=== PATIENT | female | born 1970 | race Caucasian/White ===

== ENCOUNTER 2020-09-04 10:29 | Emergency (ER) | payer BC, SELFPAY ==
--- NOTE | ~2020-09-04 | XR_ITS ---
EXAMINATION: XR ankle RT min 3V DATE: 09/04/2020 10:55 INDICATION: Lateral right ankle pain and anastomoses post fall one week prior TECHNIQUE: Anteroposterior, oblique, mortise, and lateral views of the right ankle were obtained. COMPARISON: None. FINDINGS: Alignment is normal. No fracture. Joint spaces are well maintained. No ankle joint effusion. Small plantar calcaneal spur. Soft tissue swelling about the lateral malleolus. IMPRESSION: 1. No acute osseous abnormality. Reviewed, dictated and finalized at location A.
--- NOTE | ~2020-09-04 | XR_ITS ---
EXAMINATION: XR elbow RT min 3V DATE: 09/04/2020 10:55 INDICATION: Posterior right elbow pain post fall TECHNIQUE: Anteroposterior, two oblique and lateral views of the right elbow were obtained. COMPARISON: None. FINDINGS: Alignment is normal. No fracture or joint effusion. Joint spaces are normal. Soft tissues are unremar kable. IMPRESSION: 1. Negative right elbow radiographs. Reviewed, dictated and finalized at location A.
[2020-09-04 10:35] VITALS: BP 126/71; PULSE 77; RESP 12; TEMP 36.7; O2SAT 100
--- NOTE | 2020-09-04 11:10 | ED.LOWEXIN ---
HPI - Extremity Injury (Lower) General Chief Complaint: Extremity Injury, Lower Stated Complaint: R ANKLE INJURY Time Seen by Provider: 09/04/20 11:00 Source: patient and RN notes reviewed Mode of arrival: ambulatory Limitations: no limitations History of Present Illness HPI Narrative: Patient presents today complaining of a right elbow injury and right ankle injury 1 week ago while she was dancing and trying to dribble a box of ball at the same time. She rolled her right ankle and fell. She has been ambulatory since the fall. Denies pain at rest in either area. Pain increases in the elbow with pressure to the area. Pain increases to the ankle with twisting and walking. She has been applying ice and wearing an ankle sleeve, which does help with her symptoms. She currently rates her ankle pain 5. MD complaint: ankle injury Related Data Home Medications Medication Instructions Recorded Confirmed loratadine [Claritin] 10 mg PO DAILY 09/04/20 09/04/20 Allergies Allergy/AdvReac Type Severity Reaction Status Date / Time No Known Allergies Allergy Unknown Verified 09/04/20 10:40 Review of Systems Review of Systems: Narrative: CONSTITUTIONAL: Denies body aches, fever, chills, or sweats. EYES: Denies visual changes, redness, or discharge. ENT: Denies rhinorrhea, congestion, sore throat, or otalgia. CARDIOVASCULAR: Denies chest pain, palpitations, or edema. RESPIRATORY: Denies cough or dyspnea. GASTROINTESTINAL: Denies abdominal pain, nausea, vomiting, or diarrhea. GENITOURINARY: Denies dysuria or hematuria. SKIN: Denies rash, itching, or wounds. MUSCULOSKELETAL: Denies back pain, or myalgia. + Right elbow injury, right ankle injury NEUROLOGIC: Denies headache, numbness, tingling, or weakness. PSYCH: Denies depression or anxiety. [facility] Past Medical History Medical History Family history of colon cancer Family History Family History Mother Family history of suicide Father Hypertension Sibling Carcinoma of colon Other Cerebrovascular accident Family history of malignant neoplasm Family history of mental disorder Family history of seizure disorder Social History Social History Years smoked: 15 Smoking status: Former smoker Tobacco type: cigarettes Smoking end date: 04/16/03 Alcohol intake: current Drinks per week: 1 Substance use: never Substance use type: does not use Gender identity (if verbalized by the patient): Female Comments At time of signature, I have reviewed and agree with nursing past medical, surgical, social and family history unless otherwise noted. Please see nursing chart for further information. There is no relevant family history pertinent to the presenting complaint Exam Narrative: Exam Narrative: GENERAL: Well-appearing, well-nourished, and in no acute distress. HEAD: Normocephalic, atraumatic. EYES: EOMI. No redness or drainage. Conjunctivae normal. ENT: Mucous membranes pink and moist. NECK: Normal AROM. CHEST: No respiratory distress. EXTREMITIES: Right elbow: Mild tenderness to olecranon process. No tenderness to the lateral or medial epicondyles. No edema noted. Full range of motion actively without pain. Distal sensation intact. Capillary refill normal. Radial pulse normal. Right ankle: Moderate ecchymosis and mild edema about the ankle. Mild ecchymosis about the foot. Tenderness to the soft tissue laterally. No bony tenderness to the lateral and medial malleolus. No tenderness to the foot. Distal sensation intact. Capillary refill normal. Pedal pulse normal. Full AROM of the ankle with mild pain. SKIN: Warm, dry, no rash. Capillary refill normal. Normal skin turgor. NEURO: No focal deficits. Alert and oriented x3. Gait steady. PSYCH: Normal affect. No
== END 2020-09-04 11:41 | disposition home or self-care (01) ==
PROVIDERS: Emergency Provider Nurse Practitioner; PCP Family Medicine
DX: S93.401A Sprain of unspecified ligament of right ankle, initial encounter (principal); S50.01XA Contusion of right elbow, initial encounter; W19.XXXA Unspecified fall, initial encounter; Z87.891 Personal history of nicotine dependence
CPT/HCPCS: 73080; 73610; 99214; G0463

== ENCOUNTER → 2021-08-10 07:55 | Outpatient (CLI) | payer BC, SELFPAY ==
--- NOTE | ~2021-08-10 | US_ITS ---
EXAMINATION: US thyroid DATE: 08/10/2021 08:18 INDICATION: Neck lump. TECHNIQUE: Multiple ultrasound images of the thyroid were obtained. COMPARISON: None. FINDINGS: The right thyroid lobe measures 5.8 x 1.3 x 1.6 cm. The left thyroid lobe measures 5.1 x 1.3 x 1.8 c m. In the right thyroid lobe, there is a 6 mm solid, hypoechoic, [id number]-[id number]-cofq nodule with smooth margin without echogenic foci (TI-RADS TR4). In the right thyroid lobe, there is a 6 mm solid, hypoec hoic, uxxez-[id number]-sayy nodule with smooth margin and punctate echogenic foci (TR5). IMPRESSION: 1. Small thyroid nodules. Thyroid ultrasound is recommended in one year. Reviewed, dictated and finalized at location A.
== END ==
PROVIDERS: PCP Family Medicine; Visit Provider Nurse Practitioner Family
DX: E89.0 Postprocedural hypothyroidism (principal); R13.10 Dysphagia, unspecified; R22.1 Localized swelling, mass and lump, neck; E04.2 Nontoxic multinodular goiter
CPT/HCPCS: 76536

== ENCOUNTER 2022-04-03 02:26 | Day surgery (SDC) | payer BC, SELFPAY ==
[2022-03-22 12:18] VITALS: BMI 28.0
--- NOTE | 2022-04-02 10:15 | P.PNAN_ITS ---
Anes - Initial Pre Proc Eval Procedure: Operation Date: 04/03/22 12:30 Proposed Procedures p Esophagogastroduodenoscopy & Screening Colonoscopy - Ulisses Palencia MD Date/Time: 04/02/22 10:15 Surgeon: Ulisses Palencia MD Pre Op Diagnosis: dysphagia; neoplasm screening, fam hx colon ca Patient Data Age: 52 Gender: F Height: 1.78 m Weight: 88.5 kg Allergies Allergy/AdvReac Type Severity Reaction Status Date / Time No Known Allergies Allergy Unknown Verified 04/03/22 11:29 Home Medications Medication Instructions Recorded Confirmed Type loratadine 10 mg tablet (Claritin) 10 mg PO DAILY 09/04/20 04/03/22 History sertraline 50 mg tablet 50 mg PO DAILY #90 tabs 10/14/21 04/03/22 Rx ferrous sulfate 325 mg (65 mg 325 mg PO DAILY 12/01/21 04/03/22 History iron) tablet (FeroSul) valacyclovir 1 gram tablet 1,000 mg PO Q12H #30 tabs 12/01/21 04/03/22 Rx (Valtrex) Patient hx anesthesia problems: none Family hx anesthesia problems: none Results Review: All pre-operative results and documents have been reviewed as part of the pre- operative evaluation. [facility] Past Medical History Medical History Depression Family history of colon cancer Hyperlipemia Osteoarthritis of left hip Overweight (BMI 25.0-29.9) Personal history of other malignant neoplasm of skin Surgical History Surgical History History of left hip replacement Family History Family History Mother Family history of suicide Father Hypertension Sibling Carcinoma of colon Other Cerebrovascular accident Family history of malignant neoplasm Family history of mental disorder Family history of seizure disorder Social History Social History Years smoked: 15 Smoking status: Former smoker Tobacco type: cigarettes Second hand tobacco smoke exposure: No Smoking end date: 04/16/03 Alcohol intake: current Drinks per week: 1 Substance use: current Substance use type: other Other substance usage details: THC gummy once a month Living arrangements: with family Gender identity (if verbalized by the patient): Female Sexual Orientation (if Verbalized by the Patient): Straight or Heterosexual Spiritual care concerns: No Anes - Eval Final PreProcedure Day of Procedure 04/02/22 10:15 Patient weight: overweight Heart: regular rate and rhythm Lungs: clear to auscultation and normal air movement Airway: Mallampati scale class II Neurological: alert and oriented Last oral intake: >/= 8 hours ASA classification: II Emergent: no Anesthetic plan: proceed Anesthesia type and monitoring: general GIVS Results Review: All pre-operative results and documents have been reviewed as part of the pre- operative evaluation. Informed Consent: The patient's anesthetic plan and its attendant risks and benefits were discussed with the patient/family/POA. Questions were solicited and answers provided to the satisfaction of the patient/family/POA.
--- NOTE | 2022-04-03 11:29 | PM.HPGS ---
History of Present Illness History of Present Illness Consent: Risks, benefits, and alternatives have been discussed and questions answered. Patient agrees to proceed with procedure. Chief complaint: dysphagia; neoplasm screening, fam hx colon ca Narrative: Michelle Seth is a 52 year old female Who been having difficulty swallowing. She mentioned that she had a thyroidectomy about 18 years ago because the thyroid was enlarged. Only a couple of times recently she has noticed that when she is trying to swallow it seems not to go past her Alli's apple area. She does not spit out what is stuck. She can usually swallow it. It is more of a awareness that things are Not going down rather than actually having something get stuck. She does not have chronic acid reflux. She also has a family history of colon cancer. her sister had colon cancer. Her last colonoscopy was 5 years ago. Review of Systems Review of Systems: All systems reviewed & are unremarkable except as noted in HPI and below PMFSH Past Medical History Medical History Depression Family history of colon cancer Hyperlipemia Osteoarthritis of left hip Overweight (BMI 25.0-29.9) Personal history of other malignant neoplasm of skin Surgical History Surgical History History of left hip replacement Family History Family History Mother Family history of suicide Father Hypertension Sibling Carcinoma of colon Other Cerebrovascular accident Family history of malignant neoplasm Family history of mental disorder Family history of seizure disorder Social History Social History Years smoked: 15 Smoking status: Former smoker Tobacco type: cigarettes Second hand tobacco smoke exposure: No Smoking end date: 04/16/03 Alcohol intake: current Drinks per week: 1 Substance use: current Substance use type: other Other substance usage details: THC gummy once a month Living arrangements: with family Gender identity (if verbalized by the patient): Female Sexual Orientation (if Verbalized by the Patient): Straight or Heterosexual Spiritual care concerns: No Meds Home Medications and Allergies Home Medications Medication Instructions Recorded Confirmed Type loratadine 10 mg tablet (Claritin) 10 mg PO DAILY 09/04/20 03/22/22 History sertraline 50 mg tablet 50 mg PO DAILY #90 tabs 10/14/21 03/22/22 Rx ferrous sulfate 325 mg (65 mg 325 mg PO DAILY 12/01/21 03/22/22 History iron) tablet (FeroSul) valacyclovir 1 gram tablet 1,000 mg PO Q12H #30 tabs 12/01/21 03/22/22 Rx (Valtrex) Allergies Allergy/AdvReac Type Severity Reaction Status Date / Time No Known Allergies Allergy Unknown Verified 04/03/22 11:29 Exam Const: General: alert Orientation/consciousness: patient oriented x3 Resp: Auscultation: clear to auscultation bilaterally Cardio: Rhythm: regular rhythm GI: GI Palp: Yes Soft to palpation and No Tenderness to palpation present (GI) Neuro: General: patient oriented x3 Assessment and Plan Assessment and plan (1) Dysphagia: Code(s): R13.10 - Dysphagia, unspecified Status: Acute Assessment and Plan: EGD with possible biopsy or dilatation or cautery. (2) Colon cancer screening: Code(s): Z12.11 - Encounter for screening for malignant neoplasm of colon Status: Acute Assessment and Plan: Colonoscopy with possible biopsy or polypectomy or cautery or injection of substances.
[2022-04-03 11:34] VITALS: BP 121/77; PULSE 88; RESP 16; TEMP 36.3; O2SAT 98
[2022-04-03] MEDS: LACTATED RINGERS 1,000 ML 150 ML IV CONT (11:48)
--- NOTE | 2022-04-03 12:51 | SUR.OPER ---
EGD END 1247 COLONOSCOPY START 1250
[2022-04-03 13:13] VITALS: BP 121/70; PULSE 79; RESP 16; O2SAT 100
[2022-04-03 13:23] VITALS: BP 124/73; PULSE 74; RESP 16; O2SAT 97
[2022-04-03 13:33] VITALS: BP 118/76; PULSE 69; RESP 16; O2SAT 97
== END 2022-04-03 13:49 | disposition home or self-care (01) ==
PROVIDERS: PCP Family Medicine; Visit Provider Internal Medicine Gastroenterology
PROC: 0DJ08ZZ Inspection of Upper Intestinal Tract, Via Natural or Artificial Opening Endoscopic (ICD-10-PCS; CPT 43235; principal; 2022-04-03 12:30)
DX: Z12.11 Encounter for screening for malignant neoplasm of colon (principal); D12.5 Benign neoplasm of sigmoid colon; K63.5 Polyp of colon; Z80.0 Family history of malignant neoplasm of digestive organs; R13.10 Dysphagia, unspecified; K21.00 Gastro-esophageal reflux disease with esophagitis, without bleeding; E78.5 Hyperlipidemia, unspecified; F32.A Depression, unspecified; Z87.891 Personal history of nicotine dependence; F12.90 Cannabis use, unspecified, uncomplicated
CPT/HCPCS: 45385; 45380; 43239; 87081; 88305; J2001; J2704; J7120

== ENCOUNTER 2022-05-15 11:56 | Emergency (ER) | payer BC, SELFPAY ==
[2022-05-15 11:58] VITALS: BP 145/80; PULSE 60; RESP 14; TEMP 35.9; O2SAT 100
--- NOTE | 2022-05-15 12:02 | ED.HEATRA ---
HPI - Head Injury General Chief complaint: Head Injury Stated complaint: head injury Time Seen by Provider: 05/15/22 12:00 Source: patient Mode of arrival: ambulatory Limitations: no limitations History of Present Illness HPI Narrative: Patient is a 52-year-old female presenting to the emergency department for evaluation of headache, intermittent nausea and dizziness since head trauma. Patient states that 2 days ago she hit her head on a kitchen cabinet while she was putting paper towels in her pantry. Patient did not lose consciousness. Patient reports to placing ice packs to the sore area on the top of her head. No laceration or bleeding. Patient states that she felt well over the past 48 hours until spending a prolonged amount of time at her computer yesterday, states that she seems to have mild headache, mild nausea today as well as dizziness that is only present with mild movement. She denies any significant spinning sensation. She denies fall or injury. Patient denies vomiting. She denies focal weakness or numbness. She denies vision changes. No difficulty with speech, and no facial droop. Patient is not confused. Patient has been ambulatory without difficulty. She was able to drive herself to the emergency department. She denies chest pain, dyspnea, palpitations, syncope. Patient denies any chronic anticoagulation. Related Data Home Medications Medication Instructions Recorded Confirmed loratadine 10 mg tablet (Claritin) 10 mg PO DAILY 09/04/20 04/03/22 ferrous sulfate 325 mg (65 mg 325 mg PO DAILY 12/01/21 04/03/22 iron) tablet (FeroSul) Allergies Allergy/AdvReac Type Severity Reaction Status Date / Time No Known Allergies Allergy Unknown Verified 04/03/22 11:29 Review of Systems Review of Systems: CONSTITUTIONAL: Denies fever, chills, or sweats. EYES: Denies visual changes, redness, or discharge. ENT: Denies rhinorrhea, congestion, sore throat, or otalgia. CARDIOVASCULAR: Denies chest pain, palpitations, or edema. RESPIRATORY: Denies cough or dyspnea. GASTROINTESTINAL: Denies abdominal pain, reports nausea without vomiting GENITOURINARY: Denies dysuria or hematuria. SKIN: Denies rash or itching. MUSCULOSKELETAL: Denies back pain, joint pain, or myalgia. NEUROLOGIC: Reports mild headache without focal numbness or weakness. Denies current dizziness. PMFSH Past Medical History Medical History Depression Family history of colon cancer Hyperlipemia Osteoarthritis of left hip Overweight (BMI 25.0-29.9) Personal history of other malignant neoplasm of skin Surgical History Surgical History History of left hip replacement Family History Family History Mother Family history of suicide Father Hypertension Sibling Carcinoma of colon Other Cerebrovascular accident Family history of malignant neoplasm Family history of mental disorder Family history of seizure disorder Social History Social History Years smoked: 15 Smoking status: Former smoker Tobacco type: cigarettes Second hand tobacco smoke exposure: No Smoking end date: 04/16/03 Alcohol intake: current Drinks per week: 1 Substance use: current Substance use type: other Other substance usage details: THC gummy once a month Living arrangements: with family Occupation/Education: occupation Gender identity (if verbalized by the patient): Female Sexual Orientation (if Verbalized by the Patient): Straight or Heterosexual Spiritual care concerns: No Exam Narrative: GENERAL: Awake, alert, conversant HEAD: Normocephalic, atraumatic. EYES: PERRLA and EOMI. ENT: Nares clear, no rhinorrhea or epistaxis. Mucous membranes moist. NECK: Supple. CHEST: No respiratory distress, breathing even an
== END 2022-05-15 12:50 | disposition home or self-care (01) ==
PROVIDERS: Emergency Provider Emergency Medicine; PCP Family Medicine
DX: G44.309 Post-traumatic headache, unspecified, not intractable (principal); F07.81 Postconcussional syndrome; E78.5 Hyperlipidemia, unspecified; M16.12 Unilateral primary osteoarthritis, left hip; E66.3 Overweight; Z68.28 Body mass index [BMI] 28.0-28.9, adult; Z85.828 Personal history of other malignant neoplasm of skin; Z87.891 Personal history of nicotine dependence; W22.09XA Striking against other stationary object, initial encounter
CPT/HCPCS: 99283

== ENCOUNTER 2023-08-20 13:08 | Emergency (ER) | payer BC, SELFPAY ==
[2023-08-20 13:18] VITALS: BP 123/76; PULSE 73; RESP 14; TEMP 36.1; O2SAT 99
== END 2023-08-20 19:19 | disposition left against medical advice (07) ==
PROVIDERS: PCP Family Medicine
DX: R42 Dizziness and giddiness (principal)
CPT/HCPCS: 99199

== ENCOUNTER 2023-08-21 13:21 | Emergency (ER) | payer BC, SELFPAY | END 2023-08-21 13:42 | disposition left against medical advice (07) | PROVIDERS: PCP Family Medicine | DX: Z53.21 Procedure and treatment not carried out due to patient leaving prior to being seen by health care provider (principal) | CPT/HCPCS: 99199 ==

== ENCOUNTER 2023-08-21 15:13 | Emergency (ER) | payer BC, SELFPAY ==
[2023-08-21 15:15] VITALS: BP 136/93; PULSE 87; RESP 20; TEMP 37.1; O2SAT 100
[2023-08-21 16:44] VITALS: O2SAT 98
--- NOTE | 2023-08-21 18:05 | ED.HEATRA ---
HPI - Head Injury General Chief complaint: Head Injury Stated complaint: head injury Time Seen by Provider: 08/21/23 16:58 Source: patient Mode of arrival: ambulatory Limitations: no limitations History of Present Illness HPI Narrative: Patient is a 53-year-old female presents to ED with concern for a concussion. She reports she had a GI bug over the weekend and had several episodes of diarrhea. She had a syncopal episode after having a large bowel movement on Sunday night. She hit her head against something in her bathroom. Her family members were home and helped her up at that time. She was noted to have low blood pressure. She was given water, laid down, took a shower, and began feeling better. She did have 2 episodes of emesis after the incident, but has not had any further vomiting. She does complain of intermittent nausea since then, intermittent dizziness, fatigue, difficulty focusing. She has a history of a concussion in April 2022 and states the symptoms feel similar. Denies significant headaches. Denies blurry or double vision. Denies focal weakness/numbness, slurred speech, confusion. Denies neck or back pain. Denies any other injuries from the fall. Denies chest pain or shortness breath. Related Data Home Medications Medication Instructions Recorded Confirmed loratadine 10 mg tablet (Claritin) 10 mg PO DAILY 09/04/20 08/21/23 Allergies Allergy/AdvReac Type Severity Reaction Status Date / Time No Known Allergies Allergy Unknown Verified 08/21/23 15:19 Review of Systems Review of Systems: CONSTITUTIONAL: Denies fever, chills, or sweats. ENT: Denies vision changes GASTROINTESTINAL: See HPI. MUSCULOSKELETAL: Denies back pain, neck pain, extremity pain, myalgia. NEUROLOGIC: See HPI. All systems reviewed & are unremarkable except as noted in HPI and below PMFSH Past Medical History Medical History Depression Family history of colon cancer Hyperlipemia Osteoarthritis of left hip Overweight (BMI 25.0-29.9) Personal history of other malignant neoplasm of skin Surgical History Surgical History History of left hip replacement Family History Family History Mother Family history of suicide Father Hypertension Sibling Carcinoma of colon Other Cerebrovascular accident Family history of malignant neoplasm Family history of mental disorder Family history of seizure disorder Social History Social History Years smoked: 15 Smoking status: Former smoker Tobacco type: cigarettes Second hand tobacco smoke exposure: No Smoking end date: 04/16/03 Alcohol intake: current Drinks per week: 1 Substance use: current Substance use type: other Other substance usage details: THC gummy once a month Living arrangements: with family Occupation/Education: occupation Gender identity (if verbalized by the patient): Female Sexual Orientation (if Verbalized by the Patient): Straight or Heterosexual Spiritual care concerns: No Exam Narrative: GENERAL: Well appearing, well-nourished, non-toxic, in no acute distress. HEAD: Normocephalic, atraumatic. EYES: PERRLA, EOMI. No raccoon eyes. ENT: No hemotympanum. No Christian sign. NECK: No midline spinal tenderness. Neck supple. No meningeal signs. RESPIRATORY: Airway patent, respirations nonlabored. Clear to auscultation bilaterally, no rales, rhonchi, wheezing. CARDIOVASCULAR: Regular rate and rhythm without murmurs, rubs, or gallops. ABDOMINAL: Soft, nontender, nondistended. Normoactive BS. MUSCULOSKELETAL: Moves all extremities. No gross deformities. No midline thoracic or lumbar spinal tenderness. SKIN: Warm, dry, normal color. NEURO: A&O X3. Speech clear. Cranial nerves II-XII gr
[2023-08-21] MEDS: ONDANSETRON HCL ODT 4 MG TABLET PO (18:12)
[2023-08-21] MEDS: MECLIZINE HCL 25 MG TABLET PO (18:12)
== END 2023-08-21 19:54 | disposition home or self-care (01) ==
PROVIDERS: Emergency Provider Physician Assistant; PCP Family Medicine
DX: S09.90XA Unspecified injury of head, initial encounter (principal); R55 Syncope and collapse; R42 Dizziness and giddiness; E78.5 Hyperlipidemia, unspecified; M16.12 Unilateral primary osteoarthritis, left hip; E66.3 Overweight; Z68.28 Body mass index [BMI] 28.0-28.9, adult; Z96.642 Presence of left artificial hip joint; Z85.828 Personal history of other malignant neoplasm of skin; Z87.891 Personal history of nicotine dependence; W01.10XA Fall on same level from slipping, tripping and stumbling with subsequent striking against unspecified object, initial encounter
CPT/HCPCS: 99283; A9270

== ENCOUNTER 2024-03-15 08:19 | Emergency (ER) | payer BC, SELFPAY ==
[2024-03-15 08:27] VITALS: BP 121/77; PULSE 83; RESP 16; TEMP 36.2; O2SAT 99
--- NOTE | 2024-03-15 08:28 | ED.URI ---
HPI - URI/Sore Throat General Chief Complaint: Upper Respiratory Infection Stated Complaint: Cough Time Seen by Provider: 03/15/24 08:27 Source: patient Mode of arrival: ambulatory Limitations: no limitations History of Present Illness HPI Narrative: Michelle is a 53-year-old female patient presenting to the clinic today with complaints of a cough, nasal congestion, and sinus pressure x8 days. She reports she is blowing out green nasal drainage. Cough is been dry until yesterday and be started become wet cough. He denies any shortness of breath or chest pain. She denies any fevers. Has been taking Tessalon Perles and Robitussin. MD elicited complaint: cough, rhinorrhea, nasal congestion and sinus pain Related Data Home Medications Medication Instructions Recorded Confirmed loratadine 10 mg tablet (Claritin) 10 mg PO DAILY 09/04/20 01/21/24 Allergies Allergy/AdvReac Type Severity Reaction Status Date / Time No Known Allergies Allergy Unknown Verified 01/21/24 07:28 Review of Systems Review of Systems: Pertinent positives per HPI. Patient denies any fever, chills, rash, headache, visual changes, dizziness, shortness of breath, chest pain, palpitations, nausea, vomiting, diarrhea, constipation, abdominal pain, or any urinary issues. [facility] Past Medical History Medical History Depression Family history of colon cancer Hyperlipemia Osteoarthritis of left hip Overweight (BMI 25.0-29.9) Personal history of other malignant neoplasm of skin Surgical History Surgical History History of left hip replacement Family History Family History Mother Family history of suicide Father Hypertension Sibling Carcinoma of colon Other Cerebrovascular accident Family history of malignant neoplasm Family history of mental disorder Family history of seizure disorder Social History Social History Years smoked: 15 Smoking status: Former smoker Tobacco type: cigarettes Second hand tobacco smoke exposure: No Smoking end date: 04/16/03 Alcohol intake: current Drinks per week: 1 Substance use: current Substance use type: other Other substance usage details: THC gummy once a month Living arrangements: with family Occupation/Education: occupation Gender identity (if verbalized by the patient): Female Sexual Orientation (if Verbalized by the Patient): Straight or Heterosexual Spiritual care concerns: No Comments At the time of my signature, I reviewed and agree with the nursing past medical, surgical, social, and family history. There is no relevant family history pertinent to the patient complaint. Exam Narrative: General: Well-developed, well nourished, in no apparent distress Head: Normocephalic, atraumatic Eyes: Pupils equally round and reactive to light bilaterally, EOM intact, sclera and conjunctive clear, no discharge, lids normal Ears: TMs intact and clear, ear canals clear, no drainage, grossly hearing normal. Nose: Nares patent, green nasal discharge, moderate inflammation, maxillary sinus tenderness. Mouth: Oral pharynx without lesions or masses, good dentition, MMM. Postnasal drip Neck: Supple, trachea midline, no enlargement of anterior or posterior cervical nodes, no thyroid masses or goiter palpable. Cardio: Regular rate and rhythm, s1 and s2 normal, no murmur appreciated. Resp: Clear to auscultation bilaterally, no rhonchi, rales, wheezing or rubs Course Course Emergency Course: Portions of this record may have been created with voice recognition software. Level of Care: Express Care Visit Vital Signs Vital signs: Vital signs reviewed MDM - URI/Sore Throat MDM Narrative Medical decision making narrative: At the time of visit patient is resting comfortably on the exam table. Patient appears to be nontoxic. Plan: I suspect patient has acute bacterial rhinosinusitis. Prescription for Augmentin and prednisone was sent to the pharmacy. Supportive measures were discussed with the patient and they voiced understanding discharge instructions and agrees to treatment plan. Return precautions reviewed Differential Diagnosis Differential diagnosis: Likely upper respiratory infection, otitis media, sinusitis, viral infection, bronchitis, influenza, pharyngitis and other (COVID) Discharge Plan Discharge Clinical Impression: Acute bacterial rhinosinusitis Patient Disposition: Home, Self-Care Condition: Stable Instructions: Antibiotic Form, Rhinosinusitis (ED) Additional Instructions: Take prescription medications only as prescribed-prednisone and Augmentin Increase fluids and stay well hydrated Tylenol/motrin for pain/fever Flonase and OTC antihistamines such as Zyrtec or Claritin as directed Vicks vapor rub to open sinuses Sinus rinses for congestion Cepacol spray, cough drops, throat lozenges, warm tea with honey/lemon, gargle salt water to soothe throat BRAT diet for diarrhea Clear liquids x 24 hours then advance as tolerated for nausea/vomiting Go to the ED if you develop a worsening in your condition- high fever not controlled by Tylenol or Motrin, dehydration, weakness, lethargy, shortness of breath, or chest pain. Follow up with your PCP in 3-5 days if symptoms persist. Prescriptions: New prednisone 20 mg tablet 40 mg PO DAILY 5 Days Qty: 10 0RF amoxicillin-pot clavulanate 875-125 mg tablet 1 tablet PO Q12H 10 Days Qty: 20 0RF No Action loratadine [Claritin] 10 mg Tablet 10 mg PO DAILY ondansetron 4 mg tablet,disintegrating 4 mg PO Q8H PRN (Reason: nausea and vomiting) Qty: 10 0RF sertraline 50 mg tablet 50 mg PO DAILY Qty: 90 2RF valacyclovir [Valtrex] 1 gram tablet See Rx Instructions .ROUTE .COMPLEX Qty: 30 1RF Rx Instructions: 1 po prn cold sore, repeat after 12 hrs (2 tablets total); 1 po prn cold sore, repeat after 12 hrs (2 tablets total) Follow-up/Referrals: Balta Dutta MD [Primary Care Provider] - Time of Disposition: 08:38 Quality NIHSS Nursing Documentation ED NIHSS nursing documentation: reviewed/agree
== END 2024-03-15 08:47 | disposition home or self-care (01) ==
PROVIDERS: Emergency Provider Nurse Practitioner Family; PCP Family Medicine
DX: J01.90 Acute sinusitis, unspecified (principal); Z87.891 Personal history of nicotine dependence; E78.5 Hyperlipidemia, unspecified; M16.12 Unilateral primary osteoarthritis, left hip
CPT/HCPCS: 99213; G0463